=== PATIENT | female | born 1995 | race African-American/Black ===

== ENCOUNTER 2022-03-25 16:11 | Outpatient (CLI) | payer OTHER ==
[~2022-03-25 16:11] MED LIST: BACTRIM DS TAB1 EACH PO
== END 2022-03-25 19:37 | disposition home or self-care (01) ==
LOC: GENOP 16:11
DX: O47.03 False labor before 37 completed weeks of gestation, third trimester (principal); Z3A.33 33 weeks gestation of pregnancy
CPT/HCPCS: 84112; G0463

== ENCOUNTER 2022-05-02 06:40 | Outpatient (CLI) | payer OTHER | END 2022-05-02 10:36 | disposition home or self-care (01) | LOC: GENOP 06:40 | DX: O47.1 False labor at or after 37 completed weeks of gestation (principal); Z3A.38 38 weeks gestation of pregnancy | CPT/HCPCS: 81001; G0463 ==